=== PATIENT | male | born 1975 | race Two or more races ===

== ENCOUNTER 2023-04-18 20:19 | Emergency (ER) | payer OTHER ==
[~2023-04-18] VITALS: Ht 185.4 cm; Wt 71.2 kg
[2023-04-18] MEDS ORDERED: SUSTIVA50 MG PO (20:45)
[2023-04-18] MEDS ORDERED: TRUVADA 100 MG1 EACH (20:45)
== END 2023-04-18 21:34 | disposition home or self-care (01) ==
LOC: ER 20:19
DX: S92.531A Displaced fracture of distal phalanx of right lesser toe(s), initial encounter for closed fracture (principal); X58.XXXA Exposure to other specified factors, initial encounter; Y93.9 Activity, unspecified; Y92.9 Unspecified place or not applicable; Y99.9 Unspecified external cause status